=== PATIENT | male | born 1970 | race Caucasian/White ===

== ENCOUNTER 2020-09-25 06:55 | Outpatient (NON) | payer OTHER, SELFPAY ==
[2020-09-25 20:58] LABS: SARS-CoV-2 RNA PCR Negative
== END 2020-09-25 06:56 ==
LOC: ANHCOVIDDT 07:01
PROVIDERS: PCP Family Medicine; Visit Provider Family Medicine
DX: Z20.828 Contact with and (suspected) exposure to other viral communicable diseases (principal)
CPT/HCPCS: 87635; C9803; U0003

== ENCOUNTER → 2021-09-28 00:32 | Outpatient (CLI) | payer OTHER, SELFPAY ==
[2021-09-28 17:10] LABS: SARS-CoV-2 RNA PCR Negative
== END ==
PROVIDERS: PCP Family Medicine; Visit Provider Physician Assistant
DX: R68.89 Other general symptoms and signs (principal); Z20.822 Contact with and (suspected) exposure to COVID-19
CPT/HCPCS: C9803; U0003; U0005

== ENCOUNTER 2021-11-26 00:18 | Day surgery (SDC) | payer OTHER, SELFPAY ==
[2021-11-13 14:25] VITALS: BMI 32.1
[2021-11-26 08:46] VITALS: BP 173/102; PULSE 80; RESP 18; TEMP 36.9; O2SAT 100
[2021-11-26] MEDS: LACTATED RINGERS 1,000 ML 150 ML IV CONT (08:49)
--- NOTE | 2021-11-26 08:50 | P.PNAN_ITS ---
Anes - Initial Pre Proc Eval Procedure: Operation Date: 11/26/21 09:30 Proposed Procedures p Screening Colonoscopy - Medhat Albarado MD Date/Time: 11/26/21 08:50 Surgeon: Medhat Albarado MD Pre Op Diagnosis: neoplasm screening Patient Data Age: 51 Gender: M Height: 1.7 m Weight: 94.4 kg Last Vital Signs Temp 36.9 C 11/26/21 08:46 Pulse 80 11/26/21 08:46 Resp 18 11/26/21 08:46 BP 173/102 H 11/26/21 08:46 Pulse Ox 100 11/26/21 08:46 Allergies Allergy/AdvReac Type Severity Reaction Status Date / Time No Known Allergies Allergy Verified 11/26/21 08:45 Home Medications Medication Instructions Recorded Confirmed Type Asmanex HFA 1 puff INHALATION DAILY 10/20/19 11/13/21 History lisinopril 20 mg PO DAILY 10/20/19 11/13/21 History mometasone [Nasonex] 2 spray INTRANASAL DAILY PRN 10/20/19 11/13/21 History fexofenadine [Carol Ann] 180 mg PO DAILY 11/13/21 11/13/21 History sulfamethoxazole-trimethoprim 1 tablet PO DAILY 11/13/21 11/13/21 History Patient hx anesthesia problems: none Family hx anesthesia problems: none Results Review: All pre-operative results and documents have been reviewed as part of the pre-operative evaluation. [facility] Past Medical History Medical History (Updated 10/31/19 @ 17:23 by Elizabeth Kang CRNA) Asthma HTN (hypertension) Obesity (BMI 30-39.9) Surgical History Surgical History (Updated 11/01/19 @ 09:06 by Yadiel ManriquezMD) Status post left knee surgery Social History Social History Years smoked: 15 Smoking status: Former smoker Tobacco type: cigarettes Alcohol intake: current Drinks per week: 6 Substance use: never Substance use type: does not use Living arrangements: with family Spiritual care concerns: No Anes - Eval Final PreProcedure Day of Procedure 11/26/21 08:50 Patient weight: obese Heart: regular rate and rhythm Lungs: clear to auscultation and normal air movement Airway: Mallampati scale class II Neurological: alert and oriented Last oral intake: >/= 8 hours ASA classification: III Emergent: no Anesthetic plan: proceed Anesthesia type and monitoring: general GIVS Results Review: All pre-operative results and documents have been reviewed as part of the pre-operative evaluation. Informed Consent: The patient's anesthetic plan and its attendant risks and benefits were discussed with the patient/family/POA. Questions were solicited and answers provided to the satisfaction of the patient/family/POA.
--- NOTE | 2021-11-26 09:32 | WPDGICN ---
Assessment and Plan Assessment and plan (1) Encounter for screening colonoscopy: Code(s): Z12.11 - Encounter for screening for malignant neoplasm of colon Status: Acute Assessment and Plan: Patient presents for screening colonoscopy. Appears to be at average risk for colon polyps. GI Consult Note Consult date/time: 11/26/21 09:32 HPI: Umer Quach is a 51 year old male Presents for screening colonoscopy. Patient's current weight appetite and bowel movements are normal. he denies abdominal pain. He has had no bleeding. Family history is noncontributory. Patient does report a past history of hemorrhoids. His family history is noncontributory. Review of Systems Review of Systems: All systems reviewed & are unremarkable except as noted in HPI and below PMFSH Past Medical History Medical History (Updated 11/26/21 @ 09:34 by Medhat Albarado MD) Asthma HTN (hypertension) Obesity (BMI 30-39.9) Surgical History Surgical History (Updated 11/01/19 @ 09:06 by Yadiel ManriquezMD) Status post left knee surgery Social History Social History Years smoked: 15 Smoking status: Former smoker Tobacco type: cigarettes Alcohol intake: current Drinks per week: 6 Substance use: never Substance use type: does not use Living arrangements: with family Spiritual care concerns: No Meds Home Medications and Allergies Home Medications Medication Instructions Recorded Confirmed Type Asmanex HFA 1 puff INHALATION DAILY 10/20/19 11/13/21 History lisinopril 20 mg PO DAILY 10/20/19 11/13/21 History mometasone [Nasonex] 2 spray INTRANASAL DAILY PRN 10/20/19 11/13/21 History fexofenadine [Carol Ann] 180 mg PO DAILY 11/13/21 11/13/21 History sulfamethoxazole-trimethoprim 1 tablet PO DAILY 11/13/21 11/13/21 History Allergies Allergy/AdvReac Type Severity Reaction Status Date / Time No Known Allergies Allergy Verified 11/26/21 08:45 Vital Signs Vital Signs - 24 hr 11/26/21 08:46 Temperature 98.4 F Pulse Rate 80 Respiratory Rate 18 Blood Pressure 173/102 H Pulse Oximetry 100 Exam Narrative: physical exam reveals patient to be alert. Vital signs stable. HEENT exam is unremarkable. Patient is anicteric. Lungs are clear to auscultation and percussion. Heart is without murmur or extra sounds. Abdominal exam bowel sounds are present soft nontender with no organomegaly. He has a small umbilical hernia.Digital external rectal exam is normal.
[2021-11-26 10:00] VITALS: BP 133/95; PULSE 74; RESP 18; O2SAT 99
[2021-11-26 10:10] VITALS: BP 152/98; PULSE 70; RESP 18; O2SAT 100
[2021-11-26 10:20] VITALS: BP 145/100; PULSE 68; RESP 20; O2SAT 100
== END 2021-11-26 10:26 | disposition home or self-care (01) ==
PROVIDERS: PCP Family Medicine; Visit Provider Internal Medicine Gastroenterology
PROC: 0DJD8ZZ Inspection of Lower Intestinal Tract, Via Natural or Artificial Opening Endoscopic (ICD-10-PCS; CPT 45378; principal; 2021-11-26 09:30)
DX: Z12.11 Encounter for screening for malignant neoplasm of colon (principal); K57.30 Diverticulosis of large intestine without perforation or abscess without bleeding; I10 Essential (primary) hypertension; J45.909 Unspecified asthma, uncomplicated; Z87.891 Personal history of nicotine dependence; E66.9 Obesity, unspecified; Z68.32 Body mass index [BMI] 32.0-32.9, adult
CPT/HCPCS: 45378; J2704; J7120

== ENCOUNTER 2023-01-12 16:19 | Emergency (ER) | payer OTHER, SELFPAY ==
[2023-01-12 16:34] VITALS: BP 163/92; PULSE 96; RESP 22; TEMP 36.8; O2SAT 100
--- NOTE | 2023-01-12 16:41 | ED.GENADULT ---
HPI - General Adult General Chief complaint: Skin/Abscess/Foreign Body Stated complaint: possible insect bites Time Seen by Provider: 01/12/23 16:41 Source: patient Mode of arrival: ambulatory Limitations: no limitations History of Present Illness HPI narrative: 52-year-old male patient presents to the [facility] with complaints of what he thinks might be insect bites to left arm and the right lower leg for the past 11-12 days. 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 Patient states he noticed that the wound to the right leg is getting more red and warmth to the area and is concerned that he might have an infection to the area. Patient states he is getting ready to leave for [email or web address] for business when to come and get it checked out before he left. Related Data Home Medications Medication Instructions Recorded Confirmed lisinopril 20 mg tablet 20 mg PO DAILY 10/20/19 01/12/23 mometasone 200 mcg/actuation HFA 1 puff inhalation DAILY 10/20/19 01/12/23 aerosol inhaler (Asmanex HFA) mometasone 50 mcg/actuation nasal 2 spray intranasal DAILY PRN Sinus 10/20/19 01/12/23 spray (Nasonex) Symptoms fexofenadine 180 mg tablet 180 mg PO DAILY 11/13/21 01/12/23 nitroglycerin 0.1 mg/hr 0.05 mg transdermal DAILY 01/12/23 01/12/23 transdermal 24 hour patch sulfamethoxazole 800 1 tablet PO DAILY 01/12/23 01/12/23 mg-trimethoprim 160 mg tablet Allergies Allergy/AdvReac Type Severity Reaction Status Date / Time No Known Allergies Allergy Verified 01/12/23 16:30 Review of Systems Review of Systems: CONSTITUTIONAL: Denies fever, chills, or sweats. EYES: Denies visual changes, redness, or discharge. ENT: Denies rhinorrhea, congestion, sore throat, or otalgia. CARDIOVASCULAR: Denies chest pain, palpitations, or edema. RESPIRATORY: Denies cough or dyspnea. GASTROINTESTINAL: Denies abdominal pain, nausea, vomiting, or diarrhea. GENITOURINARY: Denies dysuria or hematuria. SKIN: Denies rash or itching. Positive wound to left upper and right lower leg times 10-11 days MUSCULOSKELETAL: Denies back pain, joint pain, or myalgia. NEUROLOGIC: Denies headache, numbness, or weakness. PSYCHIATRIC: Denies anxiety or depression. [facility] Past Medical History Medical History (Updated 01/12/23 @ 16:57 by HANK Rooney) Asthma Cystic acne HTN (hypertension) Obesity (BMI 30-39.9) Surgical History Surgical History Status post left knee surgery Social History Social History Years smoked: 15 Smoking status: Former smoker Tobacco type: cigarettes Alcohol intake: current Drinks per week: 6 Substance use: never Substance use type: does not use Living arrangements: with family Spiritual care concerns: No Comments At the time of my signature I agree with nursing past medical history, surgical, social, and family history. There is no relevant family history pertinent to the presenting complaint. Exam Narrative: GENERAL: Well-appearing, well-nourished, and in no acute distress. HEAD: Normocephalic, atraumatic. EYES: PERRLA and EOMI. ENT: Nares clear, no rhinorrhea or epistaxis. Mucous membranes moist. NECK: Supple. No lymphadenopathy CHEST: Clear to auscultation. No respiratory distress. HEART: Regular rate and rhythm. No murmur heard. Normal peripheral pulses. ABDOMEN: Soft, nontender, nondistended, normal active bowel sounds. EXTREMITIES: Normal range of motion. No edema. SKIN: Warm, dry, no rash. patient has a small less than 0.5 cm scabbed over wound to left upper biceps area. No surrounding erythema, no warmth to area. Patient has a very similar spot to the right lower lateral calf area that is less than 0.5 cm, scabbed over but does have surrounding erythema and warmth and tenderness noted. The surrounding erythema measures approximately 1.5 cm NEURO
== END 2023-01-12 16:55 | disposition home or self-care (01) ==
PROVIDERS: Emergency Provider Nurse Practitioner Family; PCP Family Medicine
DX: L03.114 Cellulitis of left upper limb (principal); I10 Essential (primary) hypertension; J45.909 Unspecified asthma, uncomplicated; Z87.891 Personal history of nicotine dependence
CPT/HCPCS: 99213; G0463